=== PATIENT | female | born 1975 | race African-American/Black ===

== ENCOUNTER 2023-01-21 18:31 | Emergency (ER) | payer OTHER ==
[2023-01-21 19:56] LABS: #Basophils 0.1 10x3/uL (0.0-0.2); #Eosinphils 0.3 10x3/uL (0.0-0.5); #Monocytes 1.3 10x3/uL (0.0-1.1); #Neutrophils 6.6 10x3/uL (1.5-8.4); %Basophils 0.4 % (0.0-2.0); %Lymphocytes 38.5 % (18.0-47.0); %Monocytes 9.9 % (0.0-10.0); %Neutrophils 48.9 % (40.0-75.0); Hematocrit 36.1 % (34.9-44.5); Hemoglobin 12.2 g/dL (12.0-15.5); Mean Corpuscular HGB CONC 33.8 g/dL (32.0-36.0); Mean Corpuscular Hemoglobin 28.5 pg (27.0-33.0); Mean Corpuscular Volume 84.3 fl (81.6-98.3); Mean Platelet Volume 10.3 fl (7.4-10.4); Platelet Count 284 10x3/uL (150-450); RBC Distribution Width 15.1 % (11.5-14.5); Red Blood Cell (RBC) Count 4.28 10x6/uL (3.90-5.03); White Blood Cell (WBC) Count 13.5 10x3/uL (3.5-10.5)
[2023-01-21 20:08] LABS: ALT (SGPT) 14 U/L (8-55); AST (SGOT) 16 U/L (5-34); Albumin 4.2 g/dL (3.5-5.0); Alkaline Phosphatase 88 U/L (40-110); Anion Gap 14 mmol/L (10-20); BUN (Urea Nitrogen) 10 mg/dL (7.0-18.7); Bilirubin, Total 0.5 mg/dL (0.2-1.2); Calc. Creatinine Clearance 0 mL/min (70-130); Calcium 9.4 mg/dL (7.8-10.44); Carbon Dioxide 25 mmol/L (22-29); Chloride 105 mmol/L (98-107); Estimated GFR 90; Globulin 2.8 g/dL (2.4-3.5); Glucose 92 mg/dL (70-105); Lipase 35 U/L (8-78); Potassium 4.2 mmol/L (3.5-5.1); Sodium 140 mmol/L (136-145)
[2023-01-21 20:15] LABS: Troponin I Less than 0.010 ng/mL (< 0.028)
== END 2023-01-21 20:39 | disposition home or self-care (01) ==
LOC: CSHERS 18:31
DX: T67.5XXA Heat exhaustion, unspecified, initial encounter (principal); R55 Syncope and collapse
CPT/HCPCS: 36415; 71045; 80053; 83690; 84484; 85025; 93005; 96360; 96361